=== PATIENT | female | born 1985 | race Caucasian/White ===

== ENCOUNTER 2020-10-17 05:30 | Day surgery (SDC) | payer OTHER ==
[~2020-10-17] VITALS: Ht 162.6 cm; Wt 61.4 kg
[2020-10-17] MEDS ORDERED: PROPOFOL 1% 20 ML VIAL IVP ONE (05:31)
[2020-10-17] MEDS ORDERED: FentaNYL CITRATE PF 100 MCG/2 ML VIAL IVP ONE (05:31)
[2020-10-17] MEDS ORDERED: SUCCINYLCHOLINE CHLORIDE 20 MG/ML 10 ML VIAL IVP ONE (05:31)
[2020-10-17] MEDS ORDERED: ONDANSETRON HCL 4 MG/2 ML VIAL IVP ONE (05:31)
[2020-10-17] MEDS ORDERED: 0.9% SODIUM CHLORIDE 10 ML VIAL IVP ONE (05:31)
[2020-10-17] MEDS ORDERED: DEXAMETHASONE SOD PHOS 4 MG/ML VIAL IVP ONE (05:31)
[2020-10-17] MEDS ORDERED: RINGERS SOLUTION,LACTATED 1,000 ML IV ONE ×2 (05:45→07:51)
[2020-10-17 06:01] LABS: COVID AG,FIA SOURCE NASOPHARYNGEAL
[2020-10-17 06:05] LABS: HEMATOCRIT 37.9 % (36-46); HEMOGLOBIN 12.8 g/dL (12.0-16.0)
[2020-10-17] MEDS ORDERED: MEPERIDINE-PF 25 MG/ML VIAL IVP PRN (07:15)
[2020-10-17] MEDS ORDERED: FentaNYL CITRATE PF 100 MCG/2 ML VIAL IVP PRN (07:15)
[2020-10-17] MEDS ORDERED: HYDROmorphone 2 MG/ML VIAL IVP PRN (07:15)
[2020-10-17] MEDS ORDERED: DOXYCYCLINE HYCLATE 100 MG in DEXTROSE 5%-WATER 100 ML IV ONE (07:45)
[2020-10-17] MEDS ORDERED: OXYTOCIN 10 UNITS/ML VIAL IM ONE (07:51)
== END 2020-10-17 09:50 | disposition home or self-care (01) ==
LOC: SURGERY 05:30
PROVIDERS: ATTEND Obstetrics & Gynecology Obstetrics
DX: O02.1 Missed abortion (principal); Z98.890 Other specified postprocedural states; Z72.89 Other problems related to lifestyle; Z79.899 Other long term (current) drug therapy
CPT/HCPCS: 36415; 59820; 85014; 85018; 87426; 88305; C9803; J0330; J1100; J2405; J2590; J2704; J3010; J3490; J7060; J7120